=== PATIENT | female | born 1960 | race Caucasian/White ===

== ENCOUNTER 2020-10-25 08:43 | Outpatient (CLI) | payer OTHER, SELFPAY ==
--- NOTE | ~2020-10-25 | MM_ITS ---
EXAMINATION: MM screening [facility] BI w walt HISTORY: Screening TECHNIQUE: Craniocaudal and mediolateral oblique 3-D tomosynthesis images were obtained and synthetic 2-D images were generated. CAD analysis was submitted and interpreted. COMPARISON: Comparison to multiple prior studies sequentially, with oldest reviewed study dated 02/2013. BREAST PARENCHYMAL COMPOSITION: The breasts are heterogeneously dense, which may obscure small masses . FINDINGS: There is no evidence of suspicious mass, calcification, or architectural distortion to sugg est malignancy in either breast. There has been no suspicious interval change. IMPRESSION: 1. No mammographic evidence of malignancy. 2. Recommend routine screening mammography in one year. BI-RADS Category 1: Negative Reviewed, dictated and finalized at location A. ING MACHINE OPERATOR
== END 2020-10-25 08:44 | disposition home or self-care (01) ==
PROVIDERS: PCP Internal Medicine Infectious Disease; Visit Provider Obstetrics & Gynecology
DX: Z12.31 Encounter for screening mammogram for malignant neoplasm of breast (principal)
CPT/HCPCS: 77063; 77067

== ENCOUNTER 2022-07-19 14:34 | Outpatient (CLI) | payer OTHER, SELFPAY ==
--- NOTE | ~2022-07-19 | MM_ITS ---
EXAMINATION: MM screening [facility] BI w walt HISTORY: Screening mammogram TECHNIQUE: Craniocaudal and mediolateral oblique 3-D tomosynthesis images were obtained and synthetic 2-D images were generated. CAD analysis was submitted and interpreted. COMPARISON: 10/25/2020, 02/10/2019, 11/05/2017 BREAST PARENCHYMAL COMPOSITION: The breasts are heterogeneously dense, which may obscure small masses . FINDINGS: There is no suspicious mass, calcification, or architectural distortion to suggest malignan cy in either breast. There has been no suspicious interval change. IMPRESSION: 1. No mammographic evidence of malignancy. 2. Recommend routine screening mammography in one year. BI-RADS Category 1: Negative Reviewed, dictated and finalized at location A.
== END 2022-07-19 14:35 | disposition home or self-care (01) ==
LOC: ANHIMG 14:38
PROVIDERS: PCP Internal Medicine Infectious Disease; Visit Provider Obstetrics & Gynecology
DX: Z12.31 Encounter for screening mammogram for malignant neoplasm of breast (principal)
CPT/HCPCS: 77063; 77067

== ENCOUNTER 2022-10-20 09:29 | Outpatient (CLI) | payer OTHER, SELFPAY ==
--- NOTE | 2022-10-20 09:52 | ECG_ITS ---
Measurements Intervals [place] Rate: 58 P: 55 IN: 194 QRS: 34 QRSD: 106 T: 62 QT: 414 QTc: 408 Interpretive Statements SINUS BRADYCARDIA BASELINE WANDER- I, II, AVR BORDERLINE ECG NO PREVIOUS ECG AVAILABLE FOR COMPARISON Electronically Signed On 10-20-2022 10:23:46 SKIN TOGGLER by Jose Antonio Varghese D.O.
== END 2022-10-20 09:30 | disposition home or self-care (01) ==
LOC: ANHCARD 09:31
PROVIDERS: PCP Internal Medicine Infectious Disease; Visit Provider Obstetrics & Gynecology
DX: I10 Essential (primary) hypertension (principal); R94.31 Abnormal electrocardiogram [ECG] [EKG]
CPT/HCPCS: 93005

== ENCOUNTER 2022-11-01 08:19 | Outpatient (CLI) | payer OTHER, SELFPAY ==
[2022-11-01 09:43] LABS: Basophils Absolute Auto 0.1 K/mm3 (0.0-0.1); Basophils Percent Auto 0.8 % (0.2-1.2); Eosinophils Absolute Auto 0.3 K/mm3 (0-0.3); Eosinophils Percent Auto 3.4 % (0-4.4); Hematocrit 43.5 % (37.0-47.0); Hemoglobin 14.4 g/dL (12.0-15.0); Immature Granulocyte Absolute 0.04 K/mm3 (0.00-0.031); Immature Granulocyte Percent A 0.5 % (0-0.5); Lymphocytes Absolute Auto 2.39 K/mm3 (0.9-3.2); Lymphocytes Percent Auto 31.7 % (18.3-44.2); Mean Corpuscular HGB Conc 33.1 g/dl (32-36); Mean Corpuscular Hemoglobin 27.2 pg (26-34); Mean Corpuscular Volume 82.1 fl (80-100); Mean Platelet Volume 9.4 fl (7.4-10.4); Monocytes Absolute Auto 0.4 K/mm3 (0.1-0.6); Monocytes Percent Auto 5.8 % (2.6-8.5); Neutrophils Absolute Auto 4.4 K/mm3 (1.3-6.7); Neutrophils Percent Auto 57.8 % (45.5-73.1); Platelet Count Result 293 k/mm3 (150-375); Red Cell Distribution Width 13.2 % (11.5-14.5); White Blood Count 7.5 K/mm3 (4.5-10.0)
[2022-11-01 09:52] LABS: Alanine Aminotransferase 27 U/L (6-35); Albumin Level 4.7 g/dL (3.5-5.1); Alkaline Phosphatase 85 U/L (38-126); Anion Gap 8 mmol/L (8-16); Aspartate Amino Transferase 28 U/L (14-36); Bilirubin,Total 0.6 mg/dL (0.2-1.3); Blood Urea Nitrogen 24 mg/dL (7-17); Calcium 9.4 mg/dL (8.4-10.2); Carbon Dioxide 28 mmol/L (22-30); Chloride 105 mmol/L (98-107); Estimated Glomerular Filt Rate > 60; Glucose 100 mg/dL (65-110); Potassium 4.6 mmol/L (3.4-5.0); Sodium 141 mmol/L (137-145)
[2022-11-01 09:58] LABS: INR 1.1; Prothrombin Time 13.5 Seconds (11.1-14.7)
[2022-11-01 09:59] LABS: Partial Thromboplastin Time 27.6 SECONDS (22.3-36.8)
== END 2022-11-01 08:20 | disposition home or self-care (01) ==
PROVIDERS: PCP Internal Medicine Infectious Disease; Visit Provider Urology
DX: N81.4 Uterovaginal prolapse, unspecified (principal); Z01.818 Encounter for other preprocedural examination
CPT/HCPCS: 36415; 80053; 85025; 85610; 85730; 86850; 86900; 86901; 87086

== ENCOUNTER 2022-11-08 01:41 | Day surgery (SDC) | payer OTHER, SELFPAY ==
--- NOTE | 2022-10-31 17:01 | P.HP_ITS ---
H&P: HPI History of Present Illness Date/Time: 10/31/22 17:01 Chief Complaint: POP Narrative: POP no aydin no hysterectomy Review of Systems Review of Systems: All systems reviewed & are unremarkable except as noted in HPI and below PMFSH Past Medical History Medical History Missed Vaginal delivery x3 Surgical History Surgical History History of surgery on arm Family History Family History Other Family history of type 2 diabetes mellitus Social History Social History Smoking status: Never smoker Second hand tobacco smoke exposure: No Alcohol intake: current Meds Home Medications and Allergies Home Medications Medication Instructions Recorded Confirmed Type aspirin 81 mg tablet,delayed 81 mg PO DAILY 09/18/20 10/20/22 History release (Adult Low Dose Aspirin) lisinopril 10 mg tablet 10 mg PO DAILY 09/18/20 10/20/22 History loratadine 10 mg tablet (Claritin) 10 mg PO DAILY 09/18/20 10/20/22 History multivitamin 1 cap PO DAILY 09/18/20 10/20/22 History beet pill .Route 05/11/22 10/20/22 History cinnamon bark 500 mg capsule 500 mg PO DAILY 10/20/22 10/20/22 History (Cinnamon) glucosam 750 mg-chondroi 100 tablet PO 10/20/22 10/20/22 History mg-hyalur 1.65 mg-CF borate 108 mg tablet ([facility]) Allergies Allergy/AdvReac Type Severity Reaction Status Date / Time No Known Allergies Allergy Verified 10/20/22 08:34 Exam Narrative: anterior wall +3 [place] at +1 Assessment and Plan Assessment and plan (1) Uterine prolapse: Code(s): N81.4 - Uterovaginal prolapse, unspecified Status: Acute Assessment and Plan: robotic sacral colpopexy
--- NOTE | 2022-11-01 08:40 | PC.NURSE ---
Report to the Outpatient Waiting Room, entrance under the green pavilion located off [facility], at time __0600 on date __11/08/22 . Planned Procedure Time: __0730 . Time changes happen often and if your time is changed the preop area will call you the afternoon before. - You and your visitor will be asked to self-screen and do not enter if you have any COVID symptoms. - Only one visitor is requested with a max of two and NO children visitors are allowed at this time. - The patient visitor may be requested to leave or wait in car when not with patient due to distancing restrictions. - A mask is optional within the hospital. Patients may have clear liquids (water, carbonated beverages, clear teas, apple juice) until 3 hours prior to surgery with a maximum of 20 ounces. - No food from midnight until time of surgery - Infants may have breast milk until 4 hours before surgery, formula 6 hours prior to surgery. - Children will be allowed to drink immediately following surgery. If applicable, please bring a bottle or sippy cup to assist with drinking. Juice, water, soda, and popsicles are readily available. For infants on formula, please bring formula the day of surgery. Pacifiers are allowed. Take the following medications with a SIP of water the morning of surgery: ___NONE Medications to discontinue per physician ___ALL VITAMINS AND SUPPLEMENTS 3 DAYS PRE OP__PT STATES SHE WILL STOP ASPIRIN 7 DAYS PRE OP (ON HER OWN) Date to take last dose____11/04/22 Please no make-up, nail surinamese, hairspray, perfume, deodorant, or body powder the day of surgery. No jewelry (including any body piercings) or valuables the day of surgery, leave them at home. Please take a shower or bath the night before, or the morning of, surgery with an antibacterial soap. Wear comfortable, loose fitting clothing. Children are encouraged to wear pajamas. - Jewelry must be removed prior to entering the operating room. Rings and piercings that are not removed may be cut off. - The hospital will not accept responsibility for valuables. - Please leave all valuables, including medications, at home the day of surgery. If you are going home after surgery, a licensed pile driver operator barge mounted must drive you home. - NO public transportation without another adult if you receive anesthesia. - We recommend that an adult stay with you for 24 hours following discharge. - We also recommend that you do not drive, make important decision, drink alcoholic beverages, or take any drugs that were not prescribed by your health care provider for at least 24 hours after your discharge time. Follow any additional instructions given to you from your surgeon. If you or anyone in your household have experienced Covid symptoms in the past week, please notify your surgeon or the nurse liaison at the phone number below for possible testing. VERBAL AND WRITTEN instructions given to __PATIENT and asked if any additional questions and then verbalized understanding. Patient advised to call surgeon office or pre surgery nurse liaison [phone] if any additional questions.
[2022-11-01 08:58] VITALS: BP 155/80; PULSE 67; RESP 18; TEMP 37; O2SAT 100; BMI 28.5
--- NOTE | 2022-11-07 21:40 | PM.IMHP ---
H&P: HPI History of Present Illness Date/Time: 11/07/22 21:40 Chief Complaint: Vaginal pressure Narrative: She is scheduled for robotic assisted supracervical hysterectomy with bilateral salpingo-oophorectomy which will be combined sacralcolpopexy with Dr. Buckner. The procedure is being done due to symptomatic incomplete vaginal prolapse which symptoms have gotten worse over the past year. She declines pessary. She had an episode of spotting and subsequent endometrial biopsy was normal. This was most likely secondary abrasion of cervix on underwear. She was informed ok to proceed with supracervical hysterectomy. Review of Systems Review of Systems: All systems reviewed & are unremarkable except as noted in HPI and below Constitutional: Constitutional: Reports no additional constitutional complaints Eyes: Eyes: Reports no additional eye complaints Cardiovascular: Cardiovascular: Reports no additional cardiovascular complaints Respiratory: Respiratory: Reports no additional respiratory complaints Gastrointestinal: Gastrointestinal: Reports no additional gastrointestinal complaints Genitourinary: Genitourinary: Reports no additional female genitourinary complaints and Reports as per HPI Integumentary/Breasts: Skin/Breast: Reports system reviewed and no additional complaints, except as docu Neurologic: Reports system reviewed and no additional complaints, except as documented Psychiatric: Psychiatric: Reports no additional psychiatric complaints Hematologic/Lymphatic: Hematologic/Lymphatic: Reports no additional hematologic/lymphatic complaints PMFSH Past Medical History Medical History Missed Vaginal delivery x3 Surgical History Surgical History History of surgery on arm Family History Family History Other Family history of type 2 diabetes mellitus Social History Social History Smoking status: Never smoker Second hand tobacco smoke exposure: No Alcohol intake: current Spiritual care concerns: No Meds Home Medications and Allergies Home Medications Medication Instructions Recorded Confirmed Type aspirin 81 mg tablet,delayed 81 mg PO DAILY 09/18/20 11/01/22 History release (Adult Low Dose Aspirin) lisinopril 10 mg tablet 10 mg PO DAILY 09/18/20 11/01/22 History loratadine 10 mg tablet (Claritin) 10 mg PO DAILY 09/18/20 11/01/22 History multivitamin 1 cap PO DAILY 09/18/20 11/01/22 History cinnamon bark 500 mg capsule 500 mg PO DAILY 10/20/22 11/01/22 History (Cinnamon) glucosam 750 mg-chondroi 100 1 tablet PO DAILY 10/20/22 11/01/22 History mg-hyalur 1.65 mg-CF borate 108 mg tablet ([employer]) acetaminophen 500 mg tablet 500 mg PO PRN PRN Pain 11/01/22 11/01/22 History Allergies Allergy/AdvReac Type Severity Reaction Status Date / Time No Known Allergies Allergy Verified 11/01/22 08:26 Exam Const: General: comfortable and no acute distress Orientation/consciousness: oriented to person, oriented to place and oriented to time Eyes: General: appearance normal, both eyes and all related structures Neck: Neck: normal visual inspection Resp: Effort & Inspection: normal respiratory effort Auscultation: clear to auscultation bilaterally Cardio: Rate: regular rate Rhythm: regular rhythm GI: Inspection: normal to inspection GI Palp: No abdominal tenderness and Yes No hepatosplenomegaly present : External Female Exam: normal external appearance Speculum Exam - Vagina: normal appearance of the vagina Speculum Exam - Cervix: normal appearance of the cervix Bimanual exam- vagina & uterus: normal bimanual exam, uterine mobility normal, uterine shape normal and non-tender Bimanual Exam- Adnexa, other: no masses, No adnexal
[2022-11-08] VITALS (16 sets, daily range): BP systolic 83–152; BP diastolic 39–85; PULSE 53–82; RESP 12–18; TEMP 36.2–36.3; O2SAT 98–100
[2022-11-08] MEDS: ACETAMINOPHEN 500 MG TABLET 1000 MG PO (06:19)
[2022-11-08] MEDS: KETOROLAC 15 MG/ML VIAL (*BKC) IV PUSH (06:55)
[2022-11-08] MEDS: LACTATED RINGERS 1,000 ML 30 ML IV CONT ×2 (06:58→10:40)
--- NOTE | 2022-11-08 07:01 | P.PNAN_ITS ---
Anes - Initial Pre Proc Eval Procedure: Operation Date: 11/08/22 07:30 Proposed Procedures p Robotic Sacrocolpopexy - Sea Buckner MD s Robotic Assisted Supracervical Total Hysterectomy With Bilateral Salpingectomy - Trav Hughes MD Date/Time: 11/08/22 07:01 Surgeon: Sea Buckner MD Pre Op Diagnosis: incomplete uterovaginal prolapse Patient Data Age: 61 Gender: F Height: 1.82 m Weight: 90.6 kg Last Vital Signs Temp 36.3 C L 11/08/22 06:57 Pulse 68 11/08/22 06:57 Resp 16 11/08/22 06:57 BP 120/73 11/08/22 06:57 Pulse Ox 100 11/08/22 06:57 O2 Del Method Room Air 11/08/22 06:57 Allergies Allergy/AdvReac Type Severity Reaction Status Date / Time No Known Allergies Allergy Verified 11/08/22 06:15 Home Medications Medication Instructions Recorded Confirmed Type aspirin 81 mg tablet,delayed 81 mg PO DAILY 09/18/20 11/08/22 History release (Adult Low Dose Aspirin) lisinopril 10 mg tablet 10 mg PO DAILY 09/18/20 11/08/22 History loratadine 10 mg tablet (Claritin) 10 mg PO DAILY 09/18/20 11/08/22 History multivitamin 1 cap PO DAILY 09/18/20 11/08/22 History cinnamon bark 500 mg capsule 500 mg PO DAILY 10/20/22 11/08/22 History (Cinnamon) glucosam 750 mg-chondroi 100 1 tablet PO DAILY 10/20/22 11/08/22 History mg-hyalur 1.65 mg-CF borate 108 mg tablet ([employer]) acetaminophen 500 mg tablet 500 mg PO PRN PRN Pain 11/01/22 11/08/22 History Patient hx anesthesia problems: none Family hx anesthesia problems: none Results Review: All pre-operative results and documents have been reviewed as part of the pre- operative evaluation. [facility] Past Medical History Medical History Hypertension Missed Vaginal delivery x3 Surgical History Surgical History History of surgery on arm Family History Family History Other Family history of type 2 diabetes mellitus Social History Social History Smoking status: Never smoker Second hand tobacco smoke exposure: No Alcohol intake: current Living arrangements: with family Spiritual care concerns: No Anes - Eval Final PreProcedure Day of Procedure 11/08/22 07:01 Patient weight: overweight Heart: regular rate and rhythm Lungs: clear to auscultation Airway: Mallampati scale class II Neurological: alert and oriented Last oral intake: >/= 8 hours ASA classification: II Emergent: no Anesthetic plan: proceed Anesthesia type and monitoring: general ETT and standard monitoring Results Review: All pre-operative results and documents have been reviewed as part of the pre- operative evaluation. Informed Consent: The patient's anesthetic plan and its attendant risks and benefits were discussed with the patient/family/POA. Questions were solicited and answers provided to the satisfaction of the patient/family/POA.
--- NOTE | 2022-11-08 07:10 | WPDHPUPDATE1 ---
History and Physical Update Update Date/Time: 11/08/22 07:10 History and Physical has been reviewed, including an updated exam of the patient. There are NO changes in the patient's condition. Risks, benefits, and alternatives have been discussed and questions answered. Patient agrees to proceed with procedure.
[2022-11-08] MEDS: SCOPOLAMINE 1.5 MG PATCH TRANSDERM (07:16)
--- NOTE | 2022-11-08 07:51 | WPDHPUPDATE1 ---
History and Physical Update Update Date/Time: 11/08/22 07:51 History and Physical has been reviewed, including an updated exam of the patient. There are NO changes in the patient's condition. Risks, benefits, and alternatives have been discussed and questions answered. Patient agrees to proceed with procedure.
[2022-11-08] MEDS: ceFAZolin 2 GM/D5W 50 ML 2 GM/50 ML BAG IVPB (07:54)
[2022-11-08] MEDS: metroNIDAZOLE 500 MG/ISO 100ML 500 MG/100 ML BAG 100 MG IVPB (08:09)
--- NOTE | 2022-11-08 09:17 | P.OP_ITS ---
Procedure Note - Detailed Date of Procedure 11/08/22 Pre-op Diagnosis incomplete uterovaginal prolapse Post-op Diagnosis Same Procedure Performed Robotic assisted supracervical hysterectomy with bilateral salpingo- oophorectomy. Surgeon Trav Hughes MD Anesthesia General Indications Incomplete uterovaginal prolapse Findings normal fallopian tubes and ovaries. Normal uterus.
--- NOTE | 2022-11-08 09:47 | PM.OP ---
Procedure Note - Brief Procedure Note - Brief Date of procedure: 11/08/22 Pre-op diagnosis: incomplete uterovaginal prolapse Post-op diagnosis: Same Procedure performed: robotic assisted supracervical hysterectomy with bilateral salpingo-oophorectomy Anesthesia: SALUD Surgeon: Trav Hughes MD Wall Worker: Heriberto Estimated blood loss (mL): 5 Drains: No Packing: No Pathology: Yes ( uterus with right and left fallopian tube and ovary) Complications: No immediate complications Condition: Stable Disposition: Other ( Dr. Buckner took over care after procedure was completed) Findings: normal uterus fallopian tubes and ovaries bilateral
--- NOTE | 2022-11-08 10:28 | W.PM.PROC2 ---
Procedure Note - Detailed Date of Procedure 11/08/22 Pre-op Diagnosis incomplete uterovaginal prolapse Post-op Diagnosis Same Procedure Performed Robotic assisted laparoscopic sacral colpopexy Cystoscopy Surgeon Sea Buckner MD Anesthesia General Indications This is a woman with with uterine prolapse without stress incontinence by history or by urodynamic. She desires surgical correction. She is here for the above. She understands risks of bleeding, infection, diskitis, damage to surrounding organs, bowel injury, bowel obstruction, mesh related complications including exposure and extrusion, postoperative voiding dysfunction including incontinence and retention, need for ancillary procedures, dyspareunia, recurrence of prolapse, new onset stress incontinence, and other perioperative intraoperative postoperative complications. She agrees to proceed. Findings See below Description of Procedure She was correctly identified. Informed consent obtained. She from the operating room. She was given general anesthesia. She was given appropriate perioperative antibiotics. She was placed a low lithotomy position. Pressure points were padded. A time-out performed. I marked out the skin 3 fingerbreadths cephalad to the umbilicus. I anesthetized the skin. I incised the skin. I dissected down to the fascia. I grasped the fascia with Randolph clamps. I entered the fascia sharply in a Clark type technique. I placed sutures for later fascial closure. I placed a midline trocar. I examined the abdomen. There is no sign of any injury. Under direct vision I placed 2 additional trocars in the right upper quadrant and 2 additional trocars the left upper quadrant. She was placed in steep Trendelenburg. The robot was docked. Her multifocal button inspector completed their portion of the procedure. Please see that operative report for details. I then sat at the console. The Sizer in the vagina created plane on the anterior and posterior vaginal wall. I took great care not to injure the vagina, bladder, or rectum. I introduced the mesh into the abdomen. I sewed the anterior leaflet of mesh on the anterior vaginal wall. I sewed the posterior leaflet of mesh on the posterior vaginal wall. This was done with several sutures of 2 0 [place]. I reflected the colon laterally. I opened the posterior peritoneum over the sacral promontory. I carried this into the cul-de-sac. I freed up the edges for later retroperitonealization. I located the anterior longitudinal ligament the sacrum. I cleaned off all fatty tissues. I then tensioned my mesh appropriately. I did a vaginal exam the bedside. I assured prolapse reduction without undue tension. I then sewed the proximal leaflet of mesh onto the anterior longitudinal ligament of the sacrum with several sutures of 2 0 [place]Mag[place]iel. I then used a 2 0 Monocryl to completely and meticulously retroperitonealized all mesh. I allowed the colon to go back to its normal anatomic location. There is no sign of any impingement. The specimen was then removed. All ports removed. Fascia was tied down. Skin was closed with Monocryl and surgical glue. She was repositioned. Examination revealed excellent reduction of her prolapse. There was excellent apical support. There was no over tensioning of the prolapse. She had some perineal laxity noted. I opted to not perform a perineorrhaphy I then performed cystoscopy. There was no tumors or surgical artifact. Ureteral patency was documented by placing guidewires up both ureters.. There is no surgical artifact in the bladder or urethra. I cut the excess sling material. Close incision with glue. She was awakened and transferred to PACU in stable condition. Implants Sacral colpopexy mesh Urethral sling Estimated Blood Loss 20 Drains Yes (English catheter) Packing No Pathology None sent Complications No immediate complications Condition Stable Disposition PACU
[2022-11-08] MEDS: oxyCODONE HCL (*CRX) 5 MG TAB IR PO (13:19)
--- NOTE | 2022-11-08 13:41 | P.OP_ITS ---
Procedure Note - Detailed Date of Procedure 11/08/22 Pre-op Diagnosis incomplete uterovaginal prolapse Post-op Diagnosis Same Procedure Performed robotic assisted Supracervical hysterectomy with bilateral salpingo-oophorectomy Surgeon Trav Hughes MD Vegetable Farm Worker Heriberto Anesthesia General Indications Incomplete utero vaginal prolapse Findings Normal appearing uterus normal appearing ovaries and fallopian tubes. Description of Procedure After informed consent was obtained she was taken to the operating room and general endotracheal anesthesia was administered. ? She was placed in low lithotomy position. Dr. Buckner started the procedure with placement of robotic ports. Attention was turned to the vagina speculum was inserted.? Single-tooth tenaculum placed on anterior lip of the cervix. An acorn uterine manipulator was inserted into cervical canal. Once the robotic arms were attached then attention was turn to surgery console. The right round ligament was ligated with the vessel sealer. The anterior leaf of the right broad ligament was dissected anteriorly. The right side of the bladder was dissected from the lower uterine segment and the upper cervix .? The right infundibulopelvic ligament was ligated with vessel sealer at its attachment right ovary.? The posterior broad ligament was further ligated. ? The ascending uterine vessels on the right were cauterized.? ? The uterine vessels were ligated.? Attention was turned to the left? round ligament. The left round ligament was cauterized and ligated with the vessel sealer. The ? anterior leaf of the broad ligament was dissected anteriorly. The rest of the vesicouterine peritoneum was dissected off of the uterus and the lower uterine segment. The left infundibulopelvic ligament was ligated with the vessel sealer. The fallopian tube was ligated from the broad ligament. the ascending uterine vessels were ligated from the broad ligament.? The uterine arteries were ligated. ? The uterus was cauterized from the cervix. The uterus ovaries and fallopian tubes were placed in Endocatch bag. The cervical stump was hemostatic. The pelvis was hemostatic. Dr. Buckner then started his procedure. . Patient tolerated procedure well. Dr. Buckner then took over his part of the procedure. Estimated Blood Loss 5 Urine Output -400.0 Drains No Packing No Pathology Yes ( uterus and right and left fallopian tubes and right and left ovaries.) Complications No immediate complications Condition Stable Disposition Other [facility] Billing Surgery - Charge Forward: Surgery Billing
== END 2022-11-08 15:34 | disposition home or self-care (01) ==
PROVIDERS: Obstetrics & Gynecology; PCP Internal Medicine Infectious Disease; Visit Provider Urology
PROC: (CPT 57425; principal; 2022-11-08 07:30)
PROC: 0UT94ZZ Resection of Uterus, Percutaneous Endoscopic Approach (ICD-10-PCS; CPT 57425; 2022-11-08 07:30)
DX: N81.2 Incomplete uterovaginal prolapse (principal); N39.3 Stress incontinence (female) (male); D25.0 Submucous leiomyoma of uterus; N84.0 Polyp of corpus uteri; I10 Essential (primary) hypertension; Z79.82 Long term (current) use of aspirin
CPT/HCPCS: 57425; 58542; S2900 ×2; 36415; 80053; 85025; 85610; 85730; 86850; 86900; 86901; 87086; 88307; A9270; C1758; C1769; C1781; C9290; J0690; J1100; J1170; J1885; J2250; J2370; J2405; J2704; J2710; J3010; J7030; J7120

== ENCOUNTER 2023-10-15 07:18 | Outpatient (CLI) | payer OTHER, SELFPAY ==
--- NOTE | ~2023-10-15 | MM_ITS ---
EXAMINATION: MM screening [facility] BI w walt HISTORY: Screening mammogram TECHNIQUE: Craniocaudal and mediolateral oblique 3-D tomosynthesis images were obtained and synthetic 2-D images were generated. CAD analysis was submitted and interpreted. COMPARISON: 07/19/2022, 10/25/2020, 02/10/2019 bilateral screening mammogram examinations BREAST PARENCHYMAL COMPOSITION: The breasts are heterogeneously dense, which may obscure small masses . FINDINGS: Occasional benign calcifications. There is no evidence of suspicious mass, calcification, o r architectural distortion to suggest malignancy in either breast. There has been no suspicious inter cathryn change. IMPRESSION: 1. No mammographic evidence of malignancy. 2. Recommend routine screening mammography in one year. BI-RADS Category 2: Benign finding(s). Reviewed, dictated and finalized at location A. IC SAFETY TELECOMMUNICATOR
== END 2023-10-15 07:19 | disposition home or self-care (01) ==
PROVIDERS: PCP Internal Medicine Infectious Disease; Visit Provider Registered Nurse
DX: Z12.31 Encounter for screening mammogram for malignant neoplasm of breast (principal)
CPT/HCPCS: 77063; 77067

== ENCOUNTER 2025-04-29 13:58 | Outpatient (CLI) | payer OTHER, SELFPAY ==
--- NOTE | ~2025-04-29 | MM_ITS ---
EXAMINATION: MM screening pola BI w walt HISTORY: Screening TECHNIQUE: Craniocaudal and mediolateral oblique 3-D tomosynthesis images were obtained and synthetic 2-D images were generated. CAD analysis was submitted and interpreted. COMPARISON: Comparison to multiple prior studies sequentially, with oldest reviewed study dated 10/21. BREAST PARENCHYMAL COMPOSITION: Dense: The breasts are heterogeneously dense, which may obscure small masses FINDINGS: There is no evidence of suspicious mass, calcification, or architectural distortion to sugg est malignancy in either breast. There has been no suspicious interval change. IMPRESSION: 1. No mammographic evidence of malignancy. 2. Recommend routine screening mammography in one year. BI-RADS Category 1: Negative Reviewed, dictated and finalized at location B.
--- OUTSIDE RECORDS SUMMARY | 2025-04-29 15:15 | XMS_ITS | Encounter Summary ---
Author Organization [facility] Healthcare Address [address] [place] [address] Care Team Providers Care Ornamental Plaster Sticker Name Role Phone Viktor Fernandes MD Primary Care Provider [phone] Trav Hughes MD Unavailable [phone] Reason for Visit * Reason Comments Annual Exam Encounter Details Date Type Department Care Team (Late st Contact Info) Description 04/29/2025 8:00 AM CDT Office Visit [facility] [address] [place] [address] Viktor Fernandes MD [address] [place] [address] Pre-diabetes (Primary Dx); Essential hypertension; Mixed hyperlipidemia Social History Tobacco Use Types Packs/Day Years Used Date Smoking Tobacco: Never Smokeless Tobacco: Never Tobacco Cessation:Counseling Given: Not Answered Alcohol Use Standard Drinks/Week Comments No 0 (1 standard drink = 0.6 oz pur e alcohol) PHQ-2 Answer Date Recorded PHQ-2 Total Score (If total score is 3 or more points, staff should administer the PHQ-9) 0 04/29/2025 Comments No Sex and Gender Information Value Date Recorded Sex Assigned at Not on file 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 Gender Identity Not on file Sexual Orientation Not on file documented as of this encounter Last Filed Vital Signs Vital Sign Reading Time Taken Comments Blood Pressure 110/70 04/29/2025 8:02 AM CDT Pulse 64 04/29/2025 8:02 AM CDT Temperature 36.3 C (97.3 F) 04/29/2025 8:02 AM CDT Respiratory Rate 16 04/29/2025 8:02 AM CDT Oxygen Saturation 99% 04/29/2025 8:02 AM CDT Inhaled Oxygen Concentration - - Weight 91.4 kg (201 lb 6.4 oz) 04/29/2025 8:02 A M CDT Height 177.8 cm (5' 10) 04/29/2025 8:02 AM CDT Body Mass Index 28.9 04/29/2025 8:02 AM CDT documented in this encounter Patient Instructions * Patient Instructions* Viktor Fernandes MD - 04/29/2025 8:00 AM CDT CBC CMP FLP HBAIC URINE FOR MICROALBUMIN NEXT VISIT RTC IN SIX MONTHN documented in this encounter Progress Notes * Viktor Fernandes MD - 04/29/2025 8:00 AM CDT Images from the original note were not included. Nereyda Calhoun is a 64 y.o. year old White Non- female here for her yearly ASSESSMENT AND PLAN: Assessment & Plan Pre-diabetes Hemoglobin A1c is 6.5%, indicating progression towards type 2 diabetes. - Encourage dietary modifications to improve glycemic control. - Repeat A1c in six months. Possible sleep apnea Nocturnal noises and leg cramps suggest sleep apnea. Increasing hemoglobin levels may indicate nocturnal hypoxemia. - Consider home sleep study in the fall. - Monitor for symptoms such as snoring, leg jerking, and daytime somnolence. Mixed hyperlipidemia Cholesterol levels are well-controlled with current medication. LDL is 98 mg/dL, below target. - Continue Pravastatin 20 mg orally daily. - Repeat lipid panel in six months. Essential hypertension Blood pressure is well-controlled with current medication regimen. - Continue Lisinopril 10 mg orally daily. General Health Maintenance She is due for a tetanus booster. Pneumonia vaccination will be updated at age 65. Colonoscopy and mammogram are scheduled. - Receive tetanus booster at pharmacy. - Update pneumonia vaccination at age 65. - Proceed with scheduled colonoscopy and mammogram. Diagnoses and all orders for this visit: Pre-diabetes (Primary) - Albumin Creatinine Ratio, Urine; Future - Hemoglobin A1c; Future Essential hypertension - CBC with auto differential; Future - Comprehensive metabolic panel; Future Mixed hyperlipidemia - Lipid panel; Future HPI Essential htn GOAL BP IS 130/80 OR UNDER Mixed hyperlipidemia DM TYPE 2 GOAL HBAIC IS UNDER 6.5 PERCENT ELEVATED HB/HCT LIPOMA ON THE UPPER BACK RIGHT SIDE History of Present Illness Nereyda Calhoun is a 64 year old female who presents for routine follow-up and immunization updates. She is due for a tetanus booster, which she plans to receive at her pharmacy. Her last tetanus shotwas on May 31, 2014. She is also scheduled for a colonoscopy on Tuesday and a mammogram today at2 PM. Her blood pressure is well-controlled with her current medication regimen. She is taking blood pressure medication and has two more refills. She is unsure about her cholesterol medication refills butexpects to be notified by her pharmacy. Her LDL cholesterol is 98 mg/dL, indicating good control of hyperlipidemia. Her hemoglobin levels have been increasing over the past two years, from 12.9 to 14.8, but remain within the normal range. She has been checking her blood sugar levels, which vary depending on her eating habits, particularly if she eats late at night. Her A1c is 6.5, and she is not on medication for it. She acknowledges poor eating habits over the last four months due to stress but plans to improve her diet. She does not know if she snores but was told by her cousin that she makes a noise at night. Her daughter has expressed concern about her breathing. She does not usually feel tired during the day unless she has a lot going on. No leg jerking or unusual cramps at night, but she did experience leg cramps during the day over a week ago, which she attributes to being on her feet all day. Her eyes have been okay, with her last eye exam in the fall. She recently visited the dentist last week and reports no issues with her teeth. Health Maintenance: Immunizations were reviewed tdap discussed Eye exam is uptodate Dental uptodate Colonscopy due on 05/01 Mammogram today New Problems , NONE Past Medical and Surgical History: Past Medical History: Diagnosis Date HLD (hyperlipidemia) HTN (hypertension) Prediabetes Past Surgical History: Procedure Laterality Date COLONOSCOPY Family History: Family History Problem Relation Age of Onset Breast cancer Mother's Sister Breast cancer Father's Sister Heart disease Father's Brother Social History: Social History Social History Narrative Not on file Allergies: No Known Allergies Medication Changes today : NON E Procedures : NONE Depression Screen: PHQ Screening Over the past 2 weeks, how often have you been bothered by any of the following problems? Little Interest or Pleasure in Doing Things: Not at all Feeling Down, Depressed, or Hopeless: Not at all PHQ-2 Total Score (If total score is 3 or more points, staff should administer the PHQ-9): 0 Vitals: Vitals BP 110/70 Pulse 64 Temp 36.3 ??C (97.3 ??F) Resp 16 Ht 177.8 cm (5' 10) Wt 91.4 kg (201 lb 6.4 oz) LMP (LMP Unknown) SpO2 99% BMI 28.90 kg/m?? Body mass index is 28.9 kg/m??. Review of Systems: Review of Systems Constitutional: Negative. HENT: Negative. Respiratory: Negative. Genitourinary: Negative. Neurological: Negative. Exam: Physical Exam Constitutional: Appearance: Normal appearance. Cardiovascular: Rate and Rhythm: Normal rate and regular rhythm. Musculoskeletal: General: Normal range of motion. Cervical back: Normal range of motion and neck supple. LABS : Lab Results Component Value Date WBC 6.9 04/22/2025 HGB 14.8 04/22/2025 HCT 47.5 (H) 04/22/2025 MCV 83.6 04/22/2025 Lab Results Component Value Date GLUCOSE 106 (H) 04/22/2025 CALCIUM 9.4 04/22/2025 SODIUM 135 04/22/2025 POTASSIUM 4.1 04/22/2025 CO2 27 04/22/2025 CHLORIDE 99 04/22/2025 BUNSER 11 04/22/2025 CREATININE 0.70 04/22/2025 Care Team Providers: Viktor Fernandes MD documented in this encounter Plan of Treatment Upcoming Encounters Date Type Department Care Team (Late st Contact Info) Description 05/01/2025 7:30 AM CDT Hospital Encounter [facility] [address] [place] [address] Filippo Guan, [address] [place] [address] 05/01/2025 7:30 AM CDT - 05/01/2025 8:00 AM CDT Surgery [facility] [address] [place] [address] Filippo Guan DO [address] [place] [address] COLONOSCOPY Scheduled Orders Name Type Priority Associated Diagnoses Orde r Schedule CBC with auto differential Lab Routine Essential hypertension Expected: 04/29/2025, Expires: 04/29/2026 Comprehensive metabolic panel Lab Routine Essential hypertension Expected: 04/29/2025, Expires: 04/29/2026 Lipid panel Lab Routine Mixed hyperlipidemia Expected: 04/29/2025, Expires: 04/29/2026 Albumin Creatinine Ratio, Urine Lab Routine Pre-diabetes Expected: 04/29/2025, Expires: 04/29/2026 Hemoglobin A1c Lab Routine Pre-diabetes Expected: 04/29/2025, Expires: 04/29/2026 Scheduled Procedures Name Priority Associated Diagnoses Date/Ti me COLONOSCOPY Encounter for screening colonoscopy 05/01/2025 7:30 AM CDT documented as of this encounter Visit Diagnoses Diagnosis Encounter for screening colonoscopy- Primary Pre-diabetes- Primary Other abnormal glucose Essential hypertension Unspecified essential hypertension Mixed hyperlipidemia Encounter for screening colonoscopy documented in this encounter Historical Medications * This list may reflect changes made after this encounter. UNABLE TO FIND Tumeric zinc gluconate 50 mg tablet Take by mouth daily ascorbic acid (ascorbic acid with violet hips) 500 mg tablet,chewable added in this encounter Care Teams Ornamental Plaster Sticker Relationship Specialty Start Date End Date Viktor Fernandes MD [address] [place] [address] PCP - General 04/25/13 Trav Hughes MD [address] [facility] [address] [place] [address] Referring Physician Obstetrics and Gynecology 02/12/19 documented as of this encounter
--- OUTSIDE RECORDS SUMMARY | 2025-04-29 15:15 | XMS_ITS | Referral Summary ---
Author Organization [facility] [address] Address [address] [place] [address] Phone Care Team Providers Care Leather Stamper Name Role Phone Viktor Fernandes MD Primary Care Provider [phone] Trav Hughes MD Unavailable [phone] Encounters Date Type Department Care Team Description 04/29/2025 8:00 AM CDT Office Visit [facility] [address] [place] [address] Viktor Fernandes MD Pre-diabetes (Primary Dx); Essential hypertension; Mixed hyperlipidemia from Last 3 Months Allergies No known active allergies Medications loratadine (CLARITIN) 10 mg tablet take 1 tablet by oral route every day 0 0 07/19/2016 Active multivitamin (MULTIPLE VITAMINS) tablet tablet take 1 tablet by oral route every day with food 0 0 07/19/2016 Active aspirin 81 mg tablet Take 1 tablet (81 mg total) by mouth daily Active cinnamon bark 500 mg capsule Take 1 capsule (500 mg total) by mouth daily Active blood-glucose meter kit Use every day to check blood sugar 1 kit 12/02/2022 Active lancets misc Use every day to check blood sugar 100 each 2 12/02/2022 Active lisinopriL (PRINIVIL,ZESTR IL) 10 mg tablet Take 1 tablet (10 mg total) by mouth daily 90 tablet 3 09/18/2024 Active pravastatin (PRAVACHOL) 20 mg tablet Take 1 tablet (20 mg total) by mouth daily 90 tablet 4 09/18/2024 Active Accu-Chek Guide test strips strip USE EVERY DAY TO CHECK BLOOD SUGAR 100 strip 10/20/2024 Active ascorbic acid (ascorbic acid with violet hips) 500 mg tablet,chewable Acti ve zinc gluconate 50 mg tablet Take by mouth daily Active UNABLE TO FIND Tumeric Activ e Active Problems Problem Noted Date Diagnosed Date Encounter for screening colonoscopy 10/03/2024 SOB (shortness of breath) 04/27/2024 Assessment & Plan (04/28/2024 1:50 PM CDT): EKG WAS DONE TODAY WHICH WAS NSR HR OF [address] / T WAVE CHANGES WILL ARRANGE A CXR TODAY TO R/O PULMONARY CAUSES Pre-diabetes 11/16/2017 Assessment & Plan (09/18/2024 12:13 PM CDT): MUCH BETTER CONTROLLED GOAL HBAIC IS UNDER 5.7 PERCENT Routine physical examination 07/20/2017 Essential hypertension 04/06/2014 Overview (02/24/2017): Hypertension Assessment & Plan (09/18/2024 12:12 PM CDT): GOAL BP IS 130/80 OR UNDER LOW NA DIET Assessment & Plan (04/27/2024 9:13 AM CDT): BP GOAL IS 130/80 OR LESS LISINOPRIL WAS SENT TODAY Mixed hyperlipidemia 04/06/2014 Overview (02/24/2017): Hyperlipidemia Assessment & Plan (09/18/2024 12:12 PM CDT): GOAL LDL IS UNDER 100 CONTINUE PRAVACHOL Assessment & Plan (04/27/2024 9:43 AM CDT): FLP AND LDL WERE DISCUSSED ADD PRAVACHOL 20 MG PO QDAY POOLED COHORT IS HIGH GOAL LDL IS UNDER 100 Immunizations Immunization Administration Dates Next Due Influenza, Quadrivalent, Spl it, Preservative Free, Intramuscular 09/19/2019 Influenza, Unspecified 09/18/2024(Deferr ed: Patient Refused),09/12/2023(Deferred: Patient Refused) Moderna SARS-CoV-2 Monovalen t Vaccination (12+ YRS) 02/28/2021,01/31/2021 Tdap 05/31/2014 Social History Tobacco Use Types Packs/Day Years [...] on file 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 Gender Identity Not on file Sexual Orientation Not on file Last Filed Vital Signs Vital Sign Reading [...] Mass Index 28.9 04/29/2025 8:02 AM CDT Plan of Treatment Upcoming Encounters Date Type Department Care Team (Late st Contact Info) Description 05/01/2025 7:30 AM CDT Hospital Encounter [address] [address] Filippo Guan, [address] [place] [address] [place] [address] 05/01/2025 7:30 AM CDT - 05/01/2025 8:00 AM CDT Surgery [address] [place] [address] Filippo Guan, DO [address] [facility] [address] [address] COLONOSCOPY Scheduled Procedures Name Priority Associated Diagnoses Date/Ti me COLONOSCOPY Encounter for screening colonoscopy 05/01/2025 7:30 AM CDT Procedures Procedure Name Priority Date/Time Associated Diagnosis Comments HEMOGLOBIN A1C Routine 04/22/2025 7:33 AM CDT Pre-diabetes LIPID PANEL Routine 04/22/2025 7:33 AM CDT Mixed hyperlipidemia COMPREHENSIVE METABOLIC PANEL Routine 04/22/2025 7:33 AM CDT Essential hypertension CBC WITH AUTO DIFFERENTIAL Routine 04/22/2025 7:33 AM CDT Essential hypertension HM MAMMOGRAPHY Routine 10/15/2023 9:10 AM J2EE ENGINEER from Last 3 Months or Most Recently Relevant to Health Maintenance Results * (ABNORMAL) CBC with auto differential (04/22/2025 7:33 AM CDT) WBC 6.9 3.8 - 10.8 Thousand/u L [facility] RBC, POC 5.68(H) 3.80 - 5.10 Million/uL [facility] Hgb 14.8 11.7 - 15.5 g/dL [facility] Hct 47.5(H) 35.0 - 45.0 % [facility] MCV 83.6 80.0 - 100.0 fL [facility] MCH 26.1(L) 27.0 - 33.0 pg [facility] MCHC 31.2(L) 32.0 - 36.0 g/dL [facility] Comment: For adults, a slight decrease in the calculated MCHC value (in the range of 30 to 32 g/dL) is most likely not clinically significant; however, it should be interpreted with caution in correlation with other red cell parameters and the patient's clinical condition. Rdw 13.4 11.0 - 15.0 % [facility] Platelets 284 140 - 400 Thousand/u L [facility] MPV 9.6 7.5 - 12.5 fL [facility] Neutrophils, abs 3,402 1,500 - 7,800 cells/uL [facility] Lymphocytes, abs 2,822 850 - 3,900 cells/uL [facility] Monocyte abs 435 200 - 950 cells/uL [facility] Eosinophils, abs 200 15 - 500 cells/uL [facility] Basophils, abs 41 0 - 200 cells/uL [facility] Neutrophils 49.3 % [facility] Lymphocyte pct 40.9 % [facility] Monocytes 6.3 % [facility] Eosinophils 2.9 % [facility] Basophils 0.6 % [facility] Blood 04/22/2025 7:33 AM CDT 04/22/2025 7:34 AM CDT Narrative [facility] - 04/23/2025 3:04 AM CDT FASTING:YES FASTING: YES Viktor Fernandes MD LAB BLOOD ORDERABLES Final Result [facility] [address] [place] [address] * (ABNORMAL) Hemoglobin A1c (04/22/2025 7:33 AM CDT) Hgb A1C 6.5(H) <5.7 % of total Hgb [facility] Comment: For someone without known diabetes, a hemoglobin A1c value of 6.5% or greater indicates that they may have diabetes and this should be confirmed with a follow-up test. For someone with known diabetes, a value <7% indicates that their diabetes is well controlled and a value greater than or equal to 7% indicates suboptimal control. A1c targets should be individualized based on duration of diabetes, age, comorbid conditions, and other considerations. Currently, no consensus exists regarding use of hemoglobin A1c for diagnosis of diabetes for children. Blood 04/22/2025 7:33 AM CDT 04/22/2025 7:34 AM CDT Narrative [facility] - 04/23/2025 3:04 AM CDT FASTING:YES FASTING: YES us Viktor Fernandes MD LAB BLOOD ORDERABLES Final Result [facility] [address] [place] [address] * (ABNORMAL) Lipid panel (04/22/2025 7:33 AM CDT) [facility] Cholesterol 184 <200 mg/dL [facility] HDL 61 > OR = 50 mg/dL [facility] Triglycerides 153(H) <150 mg/dL [facility] LDL 98 mg/dL (calc) [facility] Comment: Reference range: <100 Desirable range <100 mg/dL for primary prevention; <70 mg/dL for patients with CHD or diabetic patients with > or = 2 CHD risk factors. LDL-C is now calculated using the Jose Luis-Gibson calculation, which is a validated novel method providing better accuracy than the Friedewald equation in the estimation of LDL-C. Jose Luis SS et al. ANGELIKA. 2013;310(19): 0477-2453 (http://education.[employer]bright.[employer]/faq/ALE677) Chol/HDL ratio 3.0 <5.0 (calc) [facility] Non-HDL, (LDL+VLDL) 123 <130 mg/dL (calc) [facility] Comment: For patients with diabetes plus 1 major ASCVD risk factor, treating to a non-HDL-C goal of <100 mg/dL (LDL-C of <70 mg/dL) is considered a therapeutic option. Blood 04/22/2025 7:33 AM CDT 04/22/2025 7:34 AM CDT Narrative [facility] - 04/23/2025 3:04 AM CDT FASTING:YES FASTING: YES Viktor Fernandes MD LAB BLOOD ORDERABLES Final Result [facility] [address] [phone] * (ABNORMAL) Comprehensive metabolic panel (04/22/2025 7:33 AM CDT) Glucose 106(H) 65 - 99 mg/dL [facility] Comment: Fasting reference interval For someone without known diabetes, a glucose value between 100 and 125 mg/dL is consistent with prediabetes and should be confirmed with a follow-up test. BUN 11 7 - 25 mg/dL [facility] Creatinine 0.70 0.50 - 1.05 mg/dL [facility] eGFR 97 > OR = 60 mL/min/1.7 3m2 [facility] BUN/creat ratio SEE NOTE: - (calc) [facility] Comment: Not Reported: BUN and Creatinine are within reference range. Sodium 135 135 - 146 mmol/L [facility] Potassium, pl 4.1 3.5 - 5.3 mmol/L [facility] Chloride 99 98 - 110 mmol/L [facility] CO2 27 20 - 32 mmol/L [facility] Calcium 9.4 8.6 - 10.4 mg/dL [facility] Protein, sr 7.7 6.1 - 8.1 g/dL [facility] Albumin 4.5 3.6 - 5.1 g/dL [facility] GLOBULIN 3.2 1.9 - 3.7 g/dL (calc) [facility] Alb/glob ratio 1.4 1.0 - 2.5 (calc) [facility] Bilirubin, total 0.6 0.2 - 1.2 mg/dL [facility] Alk phos 77 37 - 153 U/L [facility] AST 15 10 - 35 U/L [facility] ALT (SGPT) 16 6 - 29 U/L [facility] Blood 04/22/2025 7:33 AM CDT 04/22/2025 7:34 AM CDT Narrative [facility] - 04/23/2025 3:04 AM CDT FASTING:YES FASTING: YES Viktor Fernandes MD LAB BLOOD ORDERABLES Final Result [facility] [address] [place] [phone] * HM MAMMOGRAPHY (10/15/2023 9:10 AM J2EE ENGINEER) Mammography Normal Historical Provider MD HEALTH MAINTENANCE Final Result from Last 3 Months or Most Recently Relevant to Health Maintenance Insurance [facility] HMO/PPO Address: [address] [address] [facility] H[facility]/PPO Address: [facility] [address] [place] [address] Care Teams Leather Stamper Relationship Specialty Start Date End Date Viktor Fernandes MD [address] [place] [address] PCP - General 04/25/13 Trav Hughes MD [address] [facility] [address] [place] [address] Referring Physician Obstetrics and Gynecology 02/12/19
--- OUTSIDE RECORDS SUMMARY | 2025-04-29 15:16 | XMS_ITS | Encounter Summary ---
Author Organization [facility] Address [address] [place] [address] Phone Care Team Providers Care Parking Attendant Name Role Phone Viktor Fernandes MD Primary Care Provider [phone]- [phone] Trav Hughes MD Unavailable [phone] Encounter Details Date Type Department Care Team (Late st Contact Info) Description 10/25/2020 Orders Only [facility] [address] [place] [phone] Scanning, Provider Social History Tobacco Use Types Packs/Day Years Used Date Smoking Tobacco: Never Smokeless Tobacco: Never Alcohol Use Standard Drinks/Week Comments No 0 (1 standard drink = 0.6 oz pur e alcohol) Comments No Sex and Gender Information Value Date Recorded Sex Assigned at Not on file 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 Gender Identity Not on file Sexual Orientation Not on file documented as of this encounter Plan of Treatment Upcoming Encounters Date Type Department Care Team (Late st Contact Info) Description 05/01/2025 7:30 AM CDT Hospital Encounter [address] [address] Filippo Guan, [address] [place] [address] [place] [address] 05/01/2025 7:30 AM CDT - 05/01/2025 8:00 AM CDT Surgery [address] [address] Filippo Guan, DO [address] [facility] [address] [facility] [address] [place] [address] COLONOSCOPY Scheduled Procedures Name Priority Associated Diagnoses Date/Ti me COLONOSCOPY Encounter for screening colonoscopy 05/01/2025 7:30 AM CDT documented as of this encounter Procedures Procedure Name Priority Date/Time Associated Diagnosis Comments SCAN - RADIOLOGY/IMAGING 10/25/2020 documented in this encounter Results * SCAN - RADIOLOGY/IMAGING (10/25/2020) Anatomical Region Laterality Modality Other us Provider Scanning Final Result documented in this encounter Visit Diagnoses Not on filedocumented in this encounter Care Teams Parking Attendant Relationship Specialty Start Date End Date Viktor Fernandes MD [address] [place] [address] PCP - General 04/25/13 Trav Hughes MD [address] [facility] [address] [facility] [address] [place] [address] Referring Physician Obstetrics and Gynecology 02/12/19 documented as of this encounter
--- OUTSIDE RECORDS SUMMARY | 2025-04-29 15:16 | XMS_ITS | Encounter Summary ---
Author Organization [facility] Address 1 [place] [address] Phone Care Team Providers Care Crusher Loader Equipment Operator Name Role Phone Viktor Fernandes MD Primary Care Provider +- [phone] Trav Hughes MD Unavailable [phone] Encounter Details Date Type Department Care Team (Late st Contact Info) Description 11/15/2017 Orders Only [facility] 1 [place] [id number] Viktor Fernandes MD [address] [place] [address] Social History Tobacco Use Types Packs/Day Years Used Date Smoking Tobacco: Never Smokeless Tobacco: Never Alcohol Use Standard Drinks/Week Comments No 0 (1 standard drink = 0.6 oz pur e alcohol) Comments No Sex and Gender Information Value Date Recorded Sex Assigned at Not on file Legal Sex Female 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 Gender Identity Not on file Sexual Orientation Not on file documented as of this encounter Plan of Treatment Upcoming Encounters Date Type Department Care Team (Late st Contact Info) Description 05/01/2025 7:30 AM CDT Hospital Encounter [facility] 1 [place] [address] Filippo Guan, DO [address] [facility] [address] [place] [address] 05/01/2025 7:30 AM CDT - 05/01/2025 8:00 AM CDT Surgery [facility] Digestive [facility] 1 [place] [address] Filippo Guan, [address] [place] [address] [address] [place] [address] COLONOSCOPY Scheduled Procedures Name Priority Associated Diagnoses Date/Ti me COLONOSCOPY Encounter for screening colonoscopy 05/01/2025 7:30 AM CDT documented as of this encounter Procedures Procedure Name Priority Date/Time Associated Diagnosis Comments SCAN - RADIOLOGY/IMAGING 11/15/2017 8:41 AM LOGISTICS SUPPORT documented in this encounter Results * SCAN - RADIOLOGY/IMAGING (11/15/2017 8:41 AM LOGISTICS SUPPORT) Anatomical Region Laterality Modality Other us Viktor Fernandes MD Final Resu lt documented in this encounter Visit Diagnoses Not on filedocumented in this encounter Care Teams Crusher Loader Equipment Operator Relationship Specialty Start Date End Date Viktor Fernandes MD [address] [place] [address] PCP - General 04/25/13 Trav Hughes MD [address] [facility] [address] [facility] [address] [place] [address] Referring Physician Obstetrics and Gynecology 02/12/19 documented as of this encounter
--- OUTSIDE RECORDS SUMMARY | 2025-04-29 15:16 | XMS_ITS | Encounter Summary ---
Author Organization [facility] Address 1 [place] [address] Phone Care Team Providers Care Criminal Justice Faculty Name Role Phone Viktor Fernandes MD Primary Care Provider +- [phone] Trav Hughes MD Unavailable [phone] Encounter Details Date Type Department Care Team (Late st Contact Info) Description 07/19/2022 Orders Only [facility] 1 [place] [address] Scanning, Provider Social History Tobacco Use Types Packs/Day Years Used Date Smoking Tobacco: Never Smokeless Tobacco: Never Alcohol Use Standard Drinks/Week Comments No 0 (1 standard drink = 0.6 oz pur e alcohol) PHQ-2 Answer Date Recorded PHQ-2 Total Score (If total score is 3 or more points, staff should administer the PHQ-9) 0 2020 Comments No Sex and Gender Information Value Date Recorded Sex Assigned at Not on file 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 Gender Identity Not on file Sexual Orientation Not on file documented as of this encounter Plan of Treatment Upcoming Encounters Date Type Department Care Team (Late st Contact Info) Description 05/01/2025 7:30 AM CDT Hospital Encounter [facility] 1 [place] [address] Filippo Guan, DO [address] [place] [address] 05/01/2025 7:30 AM CDT - 05/01/2025 8:00 AM CDT Surgery [facility]estive [facility] 1 [place] [address] Filippo Guan, [address] [place] [address] [address] [place] [address] COLONOSCOPY Scheduled Procedures Name Priority Associated Diagnoses Date/Ti me COLONOSCOPY Encounter for screening colonoscopy 05/01/2025 7:30 AM CDT documented as of this encounter Procedures Procedure Name Priority Date/Time Associated Diagnosis Comments SCAN - RADIOLOGY/IMAGING 07/19/2022 documented in this encounter Results * SCAN - RADIOLOGY/IMAGING (07/19/2022) Anatomical Region Laterality Modality Other us Provider Scanning Final Result documented in this encounter Visit Diagnoses Not on filedocumented in this encounter Care Teams Criminal Justice Faculty Relationship Specialty Start Date End Date Viktor Fernandes MD [address] [place] [address] PCP - General 04/25/13 Trav Hughes MD [address] [facility] [address] [facility] [address] [place] [address] Referring Physician Obstetrics and Gynecology 02/12/19 documented as of this encounter
--- OUTSIDE RECORDS SUMMARY | 2025-04-29 15:16 | XMS_ITS | Encounter Summary ---
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 Gender Identity Not on file Sexual Orientation Not on file documented as of this encounter Plan of Treatment Upcoming Encounters Date Type Department Care Team (Late st Contact Info) Description 05/01/2025 7:30 AM CDT Hospital Encounter [facility] 1 [place] [address] Filippo Guan, DO [address] [facility] [place] [address] 05/01/2025 7:30 AM CDT - 05/01/2025 8:00 AM CDT Surgery [facility] Digestive [facility] 1 [place] [address] Filippo Guan, [address] [place] [address] [address] [place] [address] COLONOSCOPY Scheduled Procedures Name Priority Associated Diagnoses Date/Ti me COLONOSCOPY Encounter for screening colonoscopy 05/01/2025 7:30 AM CDT documented as of this encounter Procedures Procedure Name Priority Date/Time Associated Diagnosis Comments GI - RESULT 06/04/2021 documented in this encounter Results * GI - RESULT (06/04/2021) Anatomical Region Laterality Modality Other us Provider Scanning Final Result documented in this encounter Visit Diagnoses Not on filedocumented in this encounter Care Teams Strategic Debriefing Specialist Relationship Specialty Start Date End Date Viktor Fernandes MD [address] [place] [address] PCP - General 04/25/13 Trav Hughes MD [address] [facility] [address] [facility] [address] [place] [address] Referring Physician Obstetrics and Gynecology 02/12/19 documented as of this encounter
--- OUTSIDE RECORDS SUMMARY | 2025-04-29 15:16 | XMS_ITS | Clinical Summary ---
Author Organization [facility] [address] Address [address] [place] [address] Phone Care Team Providers Care Block Splitter Operator Name Role Phone Viktor Fernandes MD Primary Care Provider [phone] Trav Hughes MD Unavailable [phone] Allergies No known active allergies Medications loratadine [...] IS HIGH GOAL LDL IS UNDER 100 Encounters Date Type Department Care Team Description 04/29/2025 8:00 AM CDT Office Visit [facility] [address] [place] [address] Viktor Fernandes MD Pre-diabetes (Primary Dx); Essential hypertension; Mixed hyperlipidemia from Last 3 Months Immunizations Immunization Administration Dates Next Due Influenza, Quadrivalent, Spl it, Preservative Free, Intramuscular 09/19/2019 Influenza, Unspecified 09/18/2024(Deferr ed: Patient Refused),09/12/2023(Deferred: Patient Refused) Moderna SARS-CoV-2 Monovalen t Vaccination (12+ YRS) 02/28/2021,01/31/2021 Tdap 05/31/2014 Surgical History Surgery Date Site/Laterality Comments COLONOSCOPY Medical History Medical History Date Comments HTN (hypertension) HLD (hyperlipidemia) Prediabetes Family History Medical History Relation Name Comments Heart disease Father's Brother Breast cancer Father's Sister Breast cancer Mother's Sister Relation Name Status Comments Father's Brother Father's Sister Mother's Sister Social History Tobacco Use Types Packs/Day Years [...] on file 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 Gender Identity Not on file Sexual Orientation Not on file Obstetrics History Last Filed Vital Signs Vital Sign Reading [...] Description 05/01/2025 7:30 AM CDT Hospital Encounter [address] [address] Filippo Guan, [address] [facility] [address] [place] [address] 05/01/2025 7:30 AM CDT - 05/01/2025 8:00 AM CDT Surgery [facility] 1 [place] [address] Filippo Guan, [address] [facility] [address] [place] [address] COLONOSCOPY Scheduled Procedures Name Priority Associated Diagnoses Date/Ti me COLONOSCOPY Encounter for screening colonoscopy 05/01/2025 7:30 AM CDT Health Maintenance Due Date Last Done Comments Cervical Cancer Screening 1960 Hepatitis C Screening 1960 Hepatitis B Screening 1978 Zoster Vaccine (1 of 2) 2010 Colon Cancer Screening-Colonoscopy 06/04/2018 06/04/2008 DTaP/Tdap/Td Vaccine (2 - Td or Tdap) 05/31/2024 05/31/2014 Covid-19 Vaccine ( - season) 2024 11/20/2021, 02/28/2021, 01/31/2021 Breast Cancer Screening-Mammogram 10/15/2024 10/15/2023 Influenza Vaccine (Season Ended) 2025 09/19/2019 Depression Screening 04/29/2026 04/29/2025, 09/18/2024, 05/23/2023, Additional history exists Regular Well Visit/Exam 18-64 04/29/2026 04/29/2025, 05/23/2023, 05/10/2022, Additional history exists Pneumococcal vaccine <65 Aged Out No longer eligible based on patient's age to complete this topic Procedures Procedure Name Priority Date/Time Associated Diagnosis Comments HEMOGLOBIN A1C Routine 04/22/2025 7:33 AM CDT Pre-diabetes LIPID PANEL Routine 04/22/2025 7:33 AM CDT Mixed hyperlipidemia COMPREHENSIVE METABOLIC PANEL Routine 04/22/2025 7:33 AM CDT Essential hypertension CBC WITH AUTO DIFFERENTIAL Routine 04/22/2025 7:33 AM CDT Essential hypertension HM MAMMOGRAPHY Routine 10/15/2023 9:10 AM WEIGHT COUNT OPERATOR from Last 3 Months or Most Recently [...] LAB BLOOD ORDERABLES Final Result [facility] [address] [address] * (ABNORMAL) Hemoglobin A1c (04/22/2025 7:33 AM CDT) Hgb A1C 6.5(H) <5.7 % of total Hgb [facility] Comment: For someone without known [...] MD LAB BLOOD ORDERABLES Final Result [facility] [place] [address] [place] [address] * (ABNORMAL) Lipid panel (04/22/2025 7:33 AM CDT) Cholesterol 184 <200 mg/dL [facility] [...] factors. LDL-C is now calculated using the Hoa calculation, which is a validated novel method providing better accuracy than the Friedewald equation in the estimation of LDL-C. Jose Luis SS et al. ANGELIKA. 2013;310(36): 7009-6965 (http://education.Veezeon/faq/HRH652) Chol/HDL ratio 3.0 <5.0 (calc) [facility] [...] MD LAB BLOOD ORDERABLES Final Result [facility] [address] [place] [address] * (ABNORMAL) Comprehensive metabolic panel (04/22/2025 7:33 AM CDT) [facility] Glucose 106(H) 65 - 99 mg/dL [facility] [...] [facility] BUN/creat ratio SEE NOTE: 6 - 22 (calc) [facility] Comment: Not Reported: [...] LAB BLOOD ORDERABLES Final Result [facility] [address] [place] [address] * HM MAMMOGRAPHY (10/15/2023 9:10 AM WEIGHT COUNT OPERATOR) Mammography Normal Historical Provider HEALTH MAINTENANCE Final Result from Last 3 Months or Most Recently Relevant to Health Maintenance Insurance [facility] HMO/PPO Address: [address] [place] [address] [facility] HMO/PPO Address: [address] [address] [place] [address] Care Teams Block Splitter Operator Relationship Specialty Start Date End Date Viktor Fernandes MD [address] [place] [address] PCP - General 04/25/13 Trav Hughes MD [address] [facility] [address] [place] [address] Referring Physician Obstetrics and Gynecology 02/12/19
--- OUTSIDE RECORDS SUMMARY | 2025-04-29 15:16 | XMS_ITS | Encounter Summary ---
Author Organization [facility] Address 1 [place] [address] Phone Care Team Providers Care Cake Washer Name Role Phone Viktor Fernandes MD Primary Care Provider +- [phone] Trav Hughes MD Unavailable [phone] Encounter Details Date Type Department Care Team (Late st Contact Info) Description 11/08/2017 Orders Only [facility] 1 [place] [phone] Viktor Fernandes MD [address] [place] [address] Social History Tobacco Use Types Packs/Day Years Used Date Smoking Tobacco: Never Smokeless Tobacco: Never Alcohol Use Standard Drinks/Week Comments No 0 (1 standard drink = 0.6 oz pur e alcohol) Comments No Sex and Gender Information Value Date Recorded Sex Assigned at Not on file 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 Gender Identity Not on file Sexual Orientation Not on file documented as of this encounter Plan of Treatment Upcoming Encounters Date Type Department Care Team (Late st Contact Info) Description 05/01/2025 7:30 AM CDT Hospital Encounter [facility] 1 [place] [address] Filippo Guan, DO [address] [facility] [address] [place] [address] 05/01/2025 7:30 AM CDT - 05/01/2025 8:00 AM CDT Surgery [facility] Dig[facility] 1 [place] [address] Filippo Guan, [address] [place] [address] [address] [place] [address] COLONOSCOPY Scheduled Procedures Name Priority Associated Diagnoses Date/Ti me COLONOSCOPY Encounter for screening colonoscopy 05/01/2025 7:30 AM CDT documented as of this encounter Procedures Procedure Name Priority Date/Time Associated Diagnosis Comments SCAN - RADIOLOGY/IMAGING 11/08/2017 11:11 AM PROCESS IMPROVEMENT MANAGER documented in this encounter Results * SCAN - RADIOLOGY/IMAGING (11/08/2017 11:11 AM PROCESS IMPROVEMENT MANAGER) Anatomical Region Laterality Modality Other us Viktor Fernandes MD Final Resu lt documented in this encounter Visit Diagnoses Not on filedocumented in this encounter Care Teams Cake Washer Relationship Specialty Start Date End Date Viktor Fernandes MD [address] [place] [address] PCP - General 04/25/13 Trav Hughes MD [address] [facility] [address] [place] [address] Referring Physician Obstetrics and Gynecology 02/12/19 documented as of this encounter
== END 2025-04-29 13:59 | disposition home or self-care (01) ==
PROVIDERS: PCP Internal Medicine Infectious Disease; Visit Provider Obstetrics & Gynecology
DX: Z12.31 Encounter for screening mammogram for malignant neoplasm of breast (principal)
CPT/HCPCS: 77063; 77067